=== PATIENT | female | born 1990 | race Caucasian/White ===

== ENCOUNTER → 2020-11-16 11:18 | Outpatient (BNVA) | payer OTHER, SELFPAY | PROVIDERS: Visit Provider Nurse Practitioner Family | DX: Z87.42 Personal history of other diseases of the female genital tract (principal); E55.9 Vitamin D deficiency, unspecified; Z76.89 Persons encountering health services in other specified circumstances | CPT/HCPCS: 80061; 82306; 83036; 84443; 85025 ==

== ENCOUNTER → 2020-12-01 13:36 | Outpatient (BNVA) | payer OTHER, SELFPAY | PROVIDERS: Visit Provider Obstetrics & Gynecology Reproductive Endocrinology | DX: Z31.41 Encounter for fertility testing (principal) | CPT/HCPCS: 36415; 80053; 82670; 83001; 83002; 83520; 84144; 84146; 84403; 86592; 86787; 86803; 86900; 87340; 87806 ==

== ENCOUNTER → 2021-03-25 13:03 | Outpatient (BNVA) | payer OTHER, SELFPAY | PROVIDERS: PCP Nurse Practitioner Family; Visit Provider Nurse Practitioner Family | DX: E78.2 Mixed hyperlipidemia (principal); E55.9 Vitamin D deficiency, unspecified | CPT/HCPCS: 80053; 80061; 82306 ==